=== PATIENT | female | born 1955 | race Caucasian/White ===

== ENCOUNTER 2016-10-26 13:06 | Emergency (ER) | payer SELFPAY ==
[~2016-10-26] VITALS: Ht 165.1 cm; Wt 90.7 kg
--- NOTE | 2016-10-26 13:43 | PHYS DOC ---
Past Medical History Past Medical History: GERD, Hypertension, Other Additional Past Medical Histor: ulcer; uncontrolled HTN Past Surgical History: Cholecystectomy, , Other Additional Past Surgical Histo: left shoulder; left knee Alcohol Use: None Drug Use: None Adult General Chief Complaint Chief Complaint: CHEST PAIN HPI HPI Patient is a 61 year old female who presents with chest pain and shortness of breath since 3 AM this morning. Patient states she woke up at 3 in this morning with chest pain or shortness of breath that has progressed over the day therefore she came the emergency room. Patient denies any cardiac history. Patient denies any DVT risk factors. Patient denies any fevers. Patient describes the pain as a heaviness on her chest as unable to get deep breath. Patient denies a productive cough. Patient states she's laid in bed most the day therefore does not know if the pain is exertional. Patient no other complaints. Review of Systems Review of Systems GEN: Denies fevers, chills, sweats HEENT: Denies blurred vision, sore throat CV: chest pain RESP: soa GI: Denies n/v/d NEURO: Denies confusion, dizziness MSK: Denies weakness, joint pain/swelling Current Medications Current Medications Current Medications Medications (Trade) Dose Ordered Sig/Nathalie Start Time Stop Time Status Last Admin Dose Admin Albuterol/ Ipratropium (Duoneb) 3 ml 1X ONCE 10/26/16 15:15 10/26/16 15:16 DC 10/26/16 15:23 3 ML Aspirin (Children'S Aspirin) 324 mg 1X ONCE 10/26/16 15:00 10/26/16 15:03 DC 10/26/16 15:01 324 MG Iohexol (Omnipaque 300 Mg/ml) 75 ml 1X ONCE 10/26/16 15:00 10/26/16 15:01 DC 10/26/16 15:17 75 ML Allergies Allergies Allergies Coded Allergies Type Severity Reaction Last Updated Verified No Known Drug Allergies 10/26/16 No Physical Exam Physical Exam GEN.: No apparent distress. Alert and oriented. HEENT: Head is normocephalic, atraumatic NECK: Supple. LUNGS: CTAB. HEART: RRR, S1, S2 present. Peripheral pulses intact ABDOMEN: Soft, nontender. Positive bowel sounds. EXTREMITIES: Without any cyanosis. NEUROLOGIC: Normal speech, normal tone PSYCHIATRIC: Normal affect, normal mood. SKIN: No ulcerations Current Patient Data Vital Signs Vital Signs Date Time Temp Pulse Resp B/P (MAP) Pulse Ox O2 Delivery O2 Flow Rate FiO2 10/26/16 16:30 84 20 172/80 (110) 97 Room Air 10/26/16 13:11 99.3 99.3 Lab Values Laboratory Tests Test 10/26/16 13:45 10/26/16 13:55 10/26/16 15:30 White Blood Count 7.8 x10^3/uL (4.0-11.0) Red Blood Count 4.55 x10^6/uL (3.50-5.40) Hemoglobin 12.9 g/dL (12.0-15.5) Hematocrit 39.4 % (36.0-47.0) Mean Corpuscular Volume 87 fL (79-100) Mean Corpuscular Hemoglobin 28 pg (25-35) Mean Corpuscular Hemoglobin Concent 33 g/dL (31-37) Red Cell Distribution Width 13.2 % (11.5-14.5) Platelet Count 109 x10^3/uL (140-400) L Neutrophils (%) (Auto) 71 % (31-73) Lymphocytes (%) (Auto) 19 % (24-48) L Monocytes (%) (Auto) 9 % (0-9) Eosinophils (%) (Auto) 1 % (0-3) Basophils (%) (Auto) 1 % (0-3) Neutrophils # (Auto) 5.5 x10^3uL (1.8-7.7) Lymphocytes # (Auto) 1.4 x10^3/uL (1.0-4.8) Monocytes # (Auto) 0.7 x10^3/uL (0.0-1.1) Eosinophils # (Auto) 0.1 x10^3/uL (0.0-0.7) Basophils # (Auto) 0.1 x10^3/uL (0.0-0.2) D-Dimer (Kailee) 0.93 ug/mlFEU (0.00-0.50) H Sodium Level 144 mmol/L (136-145) Potassium Level 3.6 mmol/L (3.5-5.1) Chloride Level 108 mmol/L (98-107) H Carbon Dioxide Level 26 mmol/L (21-32) Anion Gap 10 (6-14) Blood Urea Nitrogen 17 mg/dL (7-20) Creatinine 0.9 mg/dL (0.6-1.0) Estimated GFR (Cockcroft-Gault) 64.1 BUN/Creatinine Ratio 19 (6-20) Glucose Level 144 mg/dL (70-99) H Calcium Level 9.3 mg/dL (8.5-10.1) Total Bilirubin 0.4 mg/dL (0.2-1.0) Aspartate Amino Transferase (AST) 43 U/L (15-37) H Alanine Aminotransferase (ALT) 32 U/L (14-59) Alkaline Phosphatase 58 U/L (46-116) Creatine Kinase 169 U/L (26-192) Creatine Kinase MB (Mass) 1.4 ng/mL (0.0-3.6) Creatine Kinase MB Relative Index 0.8 % (0-4) Troponin I Quantitative < 0.017 ng/mL (0.000-0.055) < 0.017 ng/mL (0.000-0.055) Total Protein 7.4 g/dL (6.4-8.2) Albumin 3.4 g/dL (3.4-5.0) Albumin/Globulin Ratio 0.9 (1.0-1.7) L Urine Collection Type Unknown Urine Color Yellow Urine Clarity Clear Urine pH 6.5 Urine Specific [place] 1.020 Urine Protein Negative mg/dL (NEG-TRACE) Urine Glucose (UA) Negative mg/dL (NEG) Urine Ketones (Stick) Negative mg/dL (NEG) Urine Blood Large (NEG) Urine Nitrite Negative (NEG) Urine Bilirubin Negative (NEG) Urine Urobilinogen Dipstick 0.2 mg/dL (0.2 mg/dL) Urine Leukocyte Esterase Negative (NEG) Urine RBC Tntc /HPF (0-2) Urine WBC 1-4 /HPF (0-4) Urine Squamous Epithelial Cells Few /LPF Urine Bacteria 0 /HPF (0-FEW) Urine Hyaline Casts Few /HPF Urine Mucus Mod /LPF Laboratory Tests 10/26/16 13:45 Laboratory Tests 10/26/16 13:45 EKG EKG 1314: EKG shows normal sinus rhythm rate of 87 no STEMI [] Radiology/Procedures Radiology/Procedures CXR: No acute cardiopulmonary process seen. Mildly enlarged bilateral hilar lymph nodes with calcifications. These may be related to prior granulomatous infection, however if symptoms persist, evaluation with CT chest with contrast may be of additional benefit.[] [facility] [address] [place] [address] IMAGING REPORT Signed PATIENT: CORETTA RAMIREZ ACCOUNT: [id number] : 1955 LOCATION: ER AGE: 61 SEX: F EXAM STATUS: REG ER ORD. PHYSICIAN: JENNIFER ROBLES DO REASON: chest pain, soa PROCEDURE: CT ANGIOGRAPHY CHEST CTA of the chest with contrast (pulmonary embolism protocol) 10/26/2016 Clinical History: Chest pain and shortness of breath. Technique: After the intravenous administration of 75 mL of Omnipaque 300, contiguous, 0.625 mm axial sections were obtained through the chest. 2 mm reconstructed axial and 3D MIP coronal and sagittal reconstructed images were obtained. One or more of the following individualized dose reduction techniques were utilized for this study: 1. Automated exposure control. 2. Adjustment of the mA and/or kV according to patient size. 3. Use of iterative reconstruction technique. Findings: Comparison is made to PA and lateral chest radiographs performed earlier today. No filling defects are seen within the major branches of either pulmonary artery. The heart is mildly enlarged. Mild atherosclerotic plaque formation is seen involving the thoracic aorta and its branches. The thoracic aorta is tortuous but tapers normally. Scattered coronary artery calcifications are seen. Calcified left hilar lymph nodes are noted. Dependent subsegmental atelectasis is seen involving both lungs. No acute pulmonary infiltrate is seen. No pleural effusion or pneumothorax is noted. Small calcified granulomas are seen involving the left upper lobe. Impression: There is no CT evidence of pulmonary embolism. DICTATED and SIGNED BY: EUNICE MENDOZA MD DATE: 10/26/16 2031 CC: QUOC REECE MD; NO PCP; JENNIFER ROBLES DO ~ Impressions: Chest pain Course & Med Decision Making Course & Med Decision Making Pertinent Labs and Imaging studies reviewed. (See chart for details) ED course: Patient was seen and examined emergency room cardiac workup was ordered along with a d-dimer 1444: Patient was reevaluated and her chest pain has resolved has discussed with patient about being admitted for cardiac observation versus going home since she is a heart score of 2. Still awaiting d-dimer however patient states she went to go home if her blood work looks normal. 1500: Patient was signed out to Dr. Quoc Reece who will follow-up on CT scan and disposition the patient My evaluation of the patient she states that she woke up at 3 AM and had shortness of breath that lasted about 30 minutes and then resolve. Later on she developed a substernal heaviness sensation has been constant since this morning. Nothing makes it better or worse. She has a history of hypertension, she's never been evaluated by cardiology with a stress test and she has a family history of coronary disease that started in her mom at the age of 69 with stents. EKG showed no acute abnormalities, d-dimer was elevated CT angiogram was negative of her chest. Repeat troponin and CK-MB was not elevated. I've offered the patient admission but she declines that she rather go home. Had a long conversation with her and her son stating that the symptoms could still be cardiac in nature. I explained to her the risks of going home and she's agrees that she can except those. She is to follow-up with cardiology as an outpatient. Return precautions given. She is agreeable to the plan of being discharged at this time against my advice. [] Dragon Disclaimer Dragon Disclaimer This electronic medical record was generated, in whole or in part, using a voice recognition dictation system. Departure Departure Impression: Primary Impression: Chest pain Disposition: HOME, SELF-CARE Condition: STABLE Referrals: CAROLA DEL TORO MD Patient Instructions: Chest Pain (Nonspecific) Additional Instructions: You were seen today because of your chest pain symptoms that you're having. Your EKG, blood work, CT angiogram of your chest did not show any acute abnormality's. I recommend that he be admitted to be seen by the catheterization laboratory technician. You had decided that you would rather go home and follow-up as an outpatient. I explained to you that this could be her heart that is causing the symptoms and we can't for sure say it's not that you being admitted and your willing to accept this risk and follow-up as an outpatient. Please call Dr. Del Toro's office and schedule follow-up with him. If your symptoms get worse, return, we have other concerns please return back to emergency department. Problem Qualifiers Primary Impression: Chest pain Chest pain type: other chest pain Qualified Codes: R07.89 - Other chest pain JENNIFER ROBLES DO Oct 26, 2016 13:43 QUOC REECE MD Oct 26, 2016 16:18
[2016-10-26 13:55] LABS: BASO # 0.1 x10^3/uL (0.0-0.2); BASO % 1 % (0-3); EOS % 1 % (0-3); HEMATOCRIT 39.4 % (36.0-47.0); HEMOGLOBIN 12.9 g/dL (12.0-15.5); LYMPH # 1.4 x10^3/uL (1.0-4.8); LYMPH % 19 % (24-48); MEAN CORPUSCULAR HEMOGLOBIN 28 pg (25-35); MEAN CORPUSCULAR HGB CONC 33 g/dL (31-37); MEAN CORPUSCULAR VOLUME 87 fL (79-100); MONO % 9 % (0-9); NEUT % 71 % (31-73); PLATELET COUNT 109 x10^3/uL (140-400); RED BLOOD COUNT 4.55 x10^6/uL (3.50-5.40); RED CELL DISTRIBUTION WIDTH 13.2 % (11.5-14.5); WHITE BLOOD COUNT 7.8 x10^3/uL (4.0-11.0)
--- NOTE | 2016-10-26 13:58 | RAD ---
Exam performed: 2 views of the chest. Indication: chest pain, worse on the right side Date of Service:10/26/2016 3:36 PM . Comparison : None available Findings: PA and lateral radiographs of the chest reveal a normal cardiomediastinal contour. The lungs are clear. Mildly enlarged, partially calcified left hilar lymph. There is also perhaps a lymph node in the right hilum. Calcified nodule in the left lung base No pleural fluid is seen. The visualized osseous structures are unremarkable. Impression: No acute cardiopulmonary process seen. Mildly enlarged bilateral hilar lymph nodes with calcifications. These may be related to prior granulomatous infection, however if symptoms persist, evaluation with CT chest with contrast may be of additional benefit.
[2016-10-26 14:03] LABS: CALCIUM 9.3 mg/dL (8.5-10.1); CREATININE 0.9 mg/dL (0.6-1.0); GFR 64.1; POTASSIUM 3.6 mmol/L (3.5-5.1)
[2016-10-26 14:09] LABS: ALBUMIN 3.4 g/dL (3.4-5.0); ALBUMIN/GLOBULIN RATIO 0.9 (1.0-1.7); TOTAL BILIRUBIN 0.4 mg/dL (0.2-1.0); TOTAL PROTEIN 7.4 g/dL (6.4-8.2)
[2016-10-26 14:13] LABS: BILIRUBIN,URINE NEGATIVE (NEG); GLUCOSE,URINE NEGATIVE (NEG); NITRITE,URINE NEGATIVE (NEG); PH,URINE 6.5; PROTEIN,URINE NEGATIVE (NEG-TRACE); UROBILINOGEN,URINE 0.2 mg/dL (0.2 mg/dL)
[2016-10-26 14:27] LABS: BACTERIA,URINE 0 /HPF (0-FEW); RBC,URINE TNTC /HPF (0-2); SQUAMOUS EPITHELIAL CELL,UR FEW /LPF
[2016-10-26] MEDS ORDERED: IOHEXOL 300 MG/ML 75 ML VIAL IV ONE (15:00)
[2016-10-26] MEDS ORDERED: ASPIRIN CHEWABLE 81 MG TABLET. PO ONE (15:00)
[2016-10-26] MEDS ORDERED: IPRATRPIUM/ALBUTEROL 0.5/2.5MG 3 ML NEBU. NEB ONE (15:15)
--- NOTE | 2016-10-26 15:23 | EKG ---
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
--- NOTE | 2016-10-26 15:41 | RAD ---
CTA of the chest with contrast (pulmonary embolism protocol) 10/26/2016 Clinical History: Chest pain and shortness of breath. Technique: After the intravenous administration of 75 mL of Omnipaque 300, contiguous, 0.625 mm axial sections were obtained through the chest. 2 mm reconstructed axial and 3D MIP coronal and sagittal reconstructed images were obtained. One or more of the following individualized dose reduction techniques were utilized for this study: 1. Automated exposure control. 2. Adjustment of the mA and/or kV according to patient size. 3. Use of iterative reconstruction technique. Findings: Comparison is made to PA and lateral chest radiographs performed earlier today. No filling defects are seen within the major branches of either pulmonary artery. The heart is mildly enlarged. Mild atherosclerotic plaque formation is seen involving the thoracic aorta and its branches. The thoracic aorta is tortuous but tapers normally. Scattered coronary artery calcifications are seen. Calcified left hilar lymph nodes are noted. Dependent subsegmental atelectasis is seen involving both lungs. No acute pulmonary infiltrate is seen. No pleural effusion or pneumothorax is noted. Small calcified granulomas are seen involving the left upper lobe. Impression: There is no CT evidence of pulmonary embolism.
[2016-10-26 16:54] LABS: CKMB MASS 1.4 ng/mL (0.0-3.6)
[2016-10-26 17:00] VITALS: BP 164/71
== END 2016-10-26 17:43 | disposition home or self-care (01) ==
LOC: ER 13:06
DX: R07.89 Other chest pain (principal); R06.02 Shortness of breath; K21.9 Gastro-esophageal reflux disease without esophagitis; I10 Essential (primary) hypertension; Z90.49 Acquired absence of other specified parts of digestive tract
CPT/HCPCS: 36415; 71020; 71275; 80053; 81001; 82553; 84484; 85025; 85379; 93005; 94250; 94640; 99285; J7620; Q9967

== ENCOUNTER 2016-11-21 16:56 | Inpatient (IN) | payer SELFPAY ==
[~2016-11-21] VITALS: Ht 165.1 cm; Wt 106.7 kg
[2016-11-21 17:30] LABS: BASO # 0.1 x10^3/uL (0.0-0.2); BASO % 1 % (0-3); EOS % 3 % (0-3); HEMATOCRIT 38.5 % (36.0-47.0); HEMOGLOBIN 12.7 g/dL (12.0-15.5); LYMPH # 1.4 x10^3/uL (1.0-4.8); LYMPH % 20 % (24-48); MEAN CORPUSCULAR HEMOGLOBIN 28 pg (25-35); MEAN CORPUSCULAR HGB CONC 33 g/dL (31-37); MEAN CORPUSCULAR VOLUME 86 fL (79-100); MONO % 8 % (0-9); NEUT % 68 % (31-73); PLATELET COUNT 97 x10^3/uL (140-400); RED BLOOD COUNT 4.48 x10^6/uL (3.50-5.40); RED CELL DISTRIBUTION WIDTH 13.9 % (11.5-14.5); WHITE BLOOD COUNT 6.8 x10^3/uL (4.0-11.0)
[2016-11-21] MEDS ORDERED: ACETAMINOPHEN 500 MG TABLET PO ONE (17:30)
[2016-11-21] MEDS ORDERED: IV NORMAL SALINE 1000ML BAG 1,000 ML IV ONE (17:30)
[2016-11-21] MEDS ORDERED: IOHEXOL 240 MG/ML 50ML VIAL. PO ONE (17:30)
[2016-11-21] MEDS ORDERED: IOHEXOL 300 MG/ML 75 ML VIAL IV ONE (17:30)
--- NOTE | 2016-11-21 17:36 | PHYS DOC ---
Past Medical History Past Medical History: Hypertension Additional Past Medical Histor: ulcer; uncontrolled HTN Past Surgical History: Cholecystectomy, Additional Past Surgical Histo: left shoulder; left knee Alcohol Use: Occasionally Drug Use: None Adult General Chief Complaint Chief Complaint: MULTIPLE TRAUMA/FALL HPI HPI Patient is a 61 year old F who presents with fall down a flight of stairs. Patient states she drank 4 tall beers which she believes contributed to her fall down the stairs. Patient complains of left neck pain, left shoulder pain, left elbow pain, left wrist pain. Patient states she cannot move her left arm without having excruciating pain. Patient also complains of some right rib pain. Patient denies loss of consciousness. Patient states she is not taking any blood thinners. Patient denies any domestic abuse. Patient has no other complaints. Review of Systems Review of Systems GEN: Denies fevers, chills, sweats HEENT: Denies blurred vision, sore throat CV: Right chest wall pain RESP: Denies shortness of air, cough GI: Denies n/v/d NEURO: Denies confusion, dizziness MSK: Left arm pain Current Medications Current Medications Current Medications Medications (Trade) Dose Ordered Sig/Nathalie Start Time Stop Time Status Last Admin Dose Admin Acetaminophen (Tylenol) 1,000 mg 1X ONCE 11/21/16 17:30 11/21/16 17:31 DC 11/21/16 17:27 1,000 MG Info (Do NOT chart on this entry -- for MONITORING) 1 each PRN DAILY PRN 11/21/16 17:45 11/23/16 17:44 Iohexol (Omnipaque 240 Mg/ml) 50 ml 1X ONCE 11/21/16 17:30 11/21/16 17:31 DC Iohexol (Omnipaque 300 Mg/ml) 75 ml 1X ONCE 11/21/16 17:30 11/21/16 17:31 DC Sodium Chloride 1,000 ml @ 1,000 mls/hr 1X ONCE 11/21/16 17:30 11/21/16 18:29 DC 11/21/16 17:28 1,000 MLS/HR Allergies Allergies Allergies Coded Allergies Type Severity Reaction Last Updated Verified No Known Drug Allergies 10/26/16 No Physical Exam Physical Exam GEN.: No apparent distress. Alert and oriented. HEENT: No obvious trauma to the head, extraocular muscles were intact, pupils were equal and reactive bilaterally NECK: Supple. Abrasion to the left neck wrapping around to midline with erythema and tenderness palpation, no C-spine midline tenderness LUNGS: CTAB. HEART: RRR, S1, S2 present. Peripheral pulses intact Chest wall: Positive tenderness palpation to the right lower chest wall with an abrasion underneath the right breast approximately 4 cm in length ABDOMEN: Soft, nontender. Positive bowel sounds. EXTREMITIES: Without any cyanosis, tenderness palpation to the left shoulder , elbow, wrist. Patient has an abrasion to her left forearm. Patient has decreased range of motion to the entire left upper extremity. Patient has a good radial pulse on the left and capillary refill to the fingers is less than 2 seconds NEUROLOGIC: Normal speech, normal tone PSYCHIATRIC: Agitated and intoxicated SKIN: No ulcerations Current Patient Data Vital Signs Vital Signs Date Time Temp Pulse Resp B/P (MAP) Pulse Ox O2 Delivery O2 Flow Rate FiO2 11/21/16 19:37 72 16 142/61 (88) 97 Room Air 11/21/16 17:10 98.5 98.5 Lab Values Laboratory Tests Test 11/21/16 17:18 11/21/16 18:31 White Blood Count 6.8 x10^3/uL (4.0-11.0) Red Blood Count 4.48 x10^6/uL (3.50-5.40) Hemoglobin 12.7 g/dL (12.0-15.5) Hematocrit 38.5 % (36.0-47.0) Mean Corpuscular Volume 86 fL (79-100) Mean Corpuscular Hemoglobin 28 pg (25-35) Mean Corpuscular Hemoglobin Concent 33 g/dL (31-37) Red Cell Distribution Width 13.9 % (11.5-14.5) Platelet Count 97 x10^3/uL (140-400) L Neutrophils (%) (Auto) 68 % (31-73) Lymphocytes (%) (Auto) 20 % (24-48) L Monocytes (%) (Auto) 8 % (0-9) Eosinophils (%) (Auto) 3 % (0-3) Basophils (%) (Auto) 1 % (0-3) Neutrophils # (Auto) 4.6 x10^3uL (1.8-7.7) Lymphocytes # (Auto) 1.4 x10^3/uL (1.0-4.8) Monocytes # (Auto) 0.6 x10^3/uL (0.0-1.1) Eosinophils # (Auto) 0.2 x10^3/uL (0.0-0.7) Basophils # (Auto) 0.1 x10^3/uL (0.0-0.2) Sodium Level 142 mmol/L (136-145) Potassium Level 3.5 mmol/L (3.5-5.1) Chloride Level 108 mmol/L (98-107) H Carbon Dioxide Level 24 mmol/L (21-32) Anion Gap 10 (6-14) Blood Urea Nitrogen 17 mg/dL (7-20) Creatinine 0.9 mg/dL (0.6-1.0) Estimated GFR (Cockcroft-Gault) 64.1 BUN/Creatinine Ratio 19 (6-20) Glucose Level 116 mg/dL (70-99) H Calcium Level 8.4 mg/dL (8.5-10.1) L Total Bilirubin 0.4 mg/dL (0.2-1.0) Aspartate Amino Transferase (AST) 59 U/L (15-37) H Alanine Aminotransferase (ALT) 36 U/L (14-59) Alkaline Phosphatase 50 U/L (46-116) Total Protein 7.6 g/dL (6.4-8.2) Albumin 3.5 g/dL (3.4-5.0) Albumin/Globulin Ratio 0.9 (1.0-1.7) L Ethyl Alcohol Level 189 mg/dL (0-10) H Urine Collection Type Unknown Urine Color Yellow Urine Clarity Clear Urine pH 6.0 Urine Specific [place] 1.015 Urine Protein Negative mg/dL (NEG-TRACE) Urine Glucose (UA) Negative mg/dL (NEG) Urine Ketones (Stick) Negative mg/dL (NEG) Urine Blood Small (NEG) Urine Nitrite Negative (NEG) Urine Bilirubin Negative (NEG) Urine Urobilinogen Dipstick 0.2 mg/dL (0.2 mg/dL) Urine Leukocyte Esterase Negative (NEG) Urine RBC 0 /HPF (0-2) Urine WBC 1-4 /HPF (0-4) Urine Squamous Epithelial Cells Few /LPF Urine Bacteria Few /HPF (0-FEW) Urine Opiates Screen Neg (NEG) Urine Methadone Screen Neg (NEG) Urine Barbiturates Neg (NEG) Urine Phencyclidine Screen Neg (NEG) Urine Amphetamine/Methamphetamine Neg (NEG) Urine Benzodiazepines Screen Neg (NEG) Urine Cocaine Screen Neg (NEG) Urine Cannabinoids Screen Neg (NEG) Urine Ethyl Alcohol Pos (NEG) Laboratory Tests 11/21/16 17:18 Laboratory Tests 11/21/16 17:18 EKG EKG 1830: EKG shows normal sinus rhythm rate of 75 no STEMI[] Radiology/Procedures Radiology/Procedures CT scan of the head and C-spine NAD CT scan of the chest/abdomen/pelvis NAD Left elbow no obvious fracture left shoulder no obvious fracture X-ray of the left wrist shows a comminuted interarticular distal radius fracture and ulnar styloid fracture [] Course & Med Decision Making Course & Med Decision Making Pertinent Labs and Imaging studies reviewed. (See chart for details) ED course: Patient was seen and examined emergency room CT scan the head/C-spine/chest/ abdomen/pelvis were ordered along with basic blood work and x-rays of the left shoulder/elbow/wrist 1929: Patient was updated on the findings of the radiology along with the left wrist fracture 1939: Discussed CC/HP/PMH with Dr. Sheehan and recommends admit to medicine and will take to the OR tomorrow, recommended a sugar tong splint and did not need to reduce it in the emergency room, splint to comfort 1948: Discussed CC/HP/PMH with Dr. Banks and recommends admit [] 1954: Sugar tong splint applied to the left upper extremity post-splint evaluation neurovascularly intact [] Dragon Disclaimer Dragon Disclaimer This electronic medical record was generated, in whole or in part, using a voice recognition dictation system. Departure Departure Impression: Primary Impression: Left wrist fracture Additional Impressions: Fall Alcohol abuse Disposition: ADMITTED INPATIENT Admitting Physician: Other (Dr. Banks) Condition: STABLE Referrals: NO PCP (PCP) Problem Qualifiers JENNIFER ROBLES DO Nov 21, 2016 17:36
[2016-11-21] MEDS ORDERED: CONTRAST GIVEN MC PRN (17:45)
[2016-11-21 17:49] LABS: CALCIUM 8.4 mg/dL (8.5-10.1); CREATININE 0.9 mg/dL (0.6-1.0); GFR 64.1; POTASSIUM 3.5 mmol/L (3.5-5.1)
[2016-11-21 17:54] LABS: ALBUMIN 3.5 g/dL (3.4-5.0); ALBUMIN/GLOBULIN RATIO 0.9 (1.0-1.7); TOTAL BILIRUBIN 0.4 mg/dL (0.2-1.0); TOTAL PROTEIN 7.6 g/dL (6.4-8.2)
--- NOTE | 2016-11-21 18:23 | EKG ---
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
--- NOTE | 2016-11-21 18:38 | RAD ---
Indication: Headache and neck pain after fall down stairs today Technique: Noncontrast CT head was obtained. CT cervical spine includes axial images and coronal and sagittal reformatted images. No comparison is available. One or more of the following individualized dose reduction techniques were utilized for this examination: 1. Automated exposure control 2. Adjustment of the mA and/or kV according to patient size 3. Use of iterative reconstruction technique Findings: Head: The ventricles and sulci are within normal limits for age. There is no acute intracranial hemorrhage or extra-axial fluid collection. There is no mass effect or midline shift. Tapia-white differentiation is preserved. There is no depressed skull fracture. Paranasal sinuses and mastoid air cells are clear. Cervical spine: There is no fracture. There is straightening of cervical lordosis but no subluxation. Prevertebral soft tissues are within normal limits. Craniovertebral junction is unremarkable. Disc osteophyte complexes, uncinate process spurring, and facet hypertrophy are noted. Facet hypertrophy is greatest on the left at C3-C4. Disc osteophyte complex is greatest at C6-C7. There is probably mild to moderate canal stenosis at C6-C7. Lung apices are clear. Lymph nodes along the cervical chains are presumed reactive. IMPRESSION: 1. No acute intracranial findings. 2. Negative for fracture or dislocation in the cervical spine. Straightening of cervical lordosis may be positional or secondary to muscle spasm. 3. Degenerative changes in the cervical spine. Electronically signed by: Peter Dacosta MD (11/21/2016 6:35 PM) [facility]
--- NOTE | 2016-11-21 18:46 | RAD ---
Indication: Pain after fall down stairs, body pain and aches. Technique: Axial images and coronal and sagittal reformatted images of the chest, abdomen, and pelvis are provided. 75 mL of intravenous Omnipaque 300 was administered without complication. No comparison is available. One or more of the following individualized dose reduction techniques were utilized for this examination: 1. Automated exposure control 2. Adjustment of the mA and/or kV according to patient size 3. Use of iterative reconstruction technique Findings: Chest: There is dependent atelectasis. There is no pulmonary contusion. There is no pneumothorax or pleural fluid. Central airways are patent. There is no evidence of mediastinal injury. There are calcified left hilar lymph nodes. There are calcified granulomas. There are coronary artery calcifications. There is no displaced rib fracture. There are degenerative changes in the spine. Abdomen: There is streak artifact from the patient's arms. There is no hepatic laceration. Gallbladder is absent. There is no evidence of a splenic laceration. Pancreas and adrenals are unremarkable. There is a 2 mm nonobstructing left renal calculus. There is no evidence of a renal laceration. There is atheromatous disease of the abdominal aorta without aneurysm. There is no evidence of a bowel injury. There are a few diverticula in the colon but no findings of a diverticulitis. There is no ascites or free air. There is a normal appendix. There is a small fat-containing umbilical hernia. There is no evidence of a retroperitoneal hemorrhage. Pelvis: Bladder is intact. There is no adnexal mass or free pelvic fluid. There is no pelvic hematoma. There are calcified phleboliths. Bony pelvis is intact. There are degenerative changes in the spine. IMPRESSION: 1. No acute thoracic findings. 2. No acute intra-abdominal findings. Electronically signed by: Peter Dacosta MD (11/21/2016 6:42 PM) [facility]
[2016-11-21 18:50] LABS: BILIRUBIN,URINE NEGATIVE (NEG); GLUCOSE,URINE NEGATIVE (NEG); NITRITE,URINE NEGATIVE (NEG); PROTEIN,URINE NEGATIVE (NEG-TRACE); UROBILINOGEN,URINE 0.2 mg/dL (0.2 mg/dL)
[2016-11-21 18:57] LABS: BARBITURATES NEG (NEG); BENZODIAZEPINES NEG (NEG); CANNABINOIDS NEG (NEG); COCAINE NEG (NEG); METHADONE NEG (NEG); OPIATES NEG (NEG); PHENCYCLIDINE NEG (NEG)
[2016-11-21 19:09] LABS: BACTERIA,URINE FEW /HPF (0-FEW); RBC,URINE 0 /HPF (0-2); SQUAMOUS EPITHELIAL CELL,UR FEW /LPF
[2016-11-21] MEDS ORDERED: ONDANSETRON PF 4 MG/2 ML VIAL. IV PRN (20:00)
[2016-11-21] MEDS ORDERED: fentaNYL PF VIAL 100 MCG/2 ML VIAL IV PRN (20:00)
[2016-11-21] MEDS ORDERED: fentaNYL PF VIAL 100 MCG/2 ML VIAL IV ONE (20:00)
[2016-11-21 22:15] VITALS: BP 113/56
[2016-11-21] MEDS: LISINOPRIL 10 MG TABLET PO SCH (22:45)
--- NOTE | 2016-11-21 22:52 | HP ---
ADMIT DATE: 11/21/2016 CHIEF COMPLAINT: Fall with wrist fracture. HISTORY OF PRESENT ILLNESS: The patient is a 61-year-old woman who had an accidental fall down the stairs at her home resulting in pain in her left neck, right ribs and left wrist. On evaluation in the Emergency Room, she was found with wrist fracture and suspected rib fracture, and promptly admitted for orthopedic consult and fixation of wrist fx. The patient relates that she had a day off today and typically drinks about 3 or 4 beers on her day off once a week. She apparently stumbled and fell down the stairs, hitting her neck on the bannister and tumbling further bracing with her hands and thus breaking her wrist on the left. She denies any loss of consciousness before or during the fall. She denies any other person involved in the fall. Denies any domestic abuse. Denies any other complaints. PAST MEDICAL HISTORY: Hypertension. She has not seen a physician in years, has not been taken any medications. FAMILY HISTORY: Positive for hypertension in daughter. SOCIAL HISTORY: Lives by herself. 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 Drinks alcohol only on her day off. Denies any tobacco or drug use. ALLERGIES: No known drug allergies. MEDICATIONS: None. REVIEW OF SYSTEMS: Positive as per HPI with pain in neck, rib cage and both arms, especially left wrist. Rest of organ system review was only positive for allergic symptoms including stuffy nose and postnasal drip. PHYSICAL EXAMINATION: VITAL SIGNS: From today show a blood pressure of 148/72, heart rate of 81, respiratory rate at 15. She is afebrile. GENERAL: This is a morbidly obese woman, alert and oriented, in no acute distress. HEENT: Shows no scleral icterus. NECK: Supple. LUNGS: Clear to auscultation bilaterally. HEART: Has regular rate and rhythm. ABDOMEN: Has positive bowel sounds, soft, nontender. EXTREMITIES: Show no edema. Left forearm and wrist are in a splint. LABORATORY DATA: CBC with a WBC of 6.8, hemoglobin 12.7, platelets of 97. Chemistries with a BUN and creatinine of 17 and 0.9. Electrolytes essentially within normal limits. Glucose at 116. LFTs with an AST of 59. Tox screen positive for alcohol at 189. Urine negative for signs of infection. IMAGING STUDIES: A chest, abdomen and pelvis CT shows no acute thoracic findings, no acute intraabdominal findings. CT of head and cervical spine without contrast show no acute intracranial findings, negative for fracture or dislocation in the cervical spine, degenerative changes are noted. Flat films of the left wrist show Colles fracture. ASSESSMENT AND PLAN: The patient is a 61-year-old woman with mechanical fall and wrist fracture. Orthopedics has been consulted and planned an open reduction and internal fixation in the morning. In the meantime, we will admit and get her blood pressure under control with starting lisinopril. She will receive p.o. as well as IV p.r.n. medications for pain control. She will be made n.p.o. after midnight. MICKI MCNEAL MD DR: OSIRIS/nts JOB#: [id number] / [id number] MELITA
[2016-11-21 23:00] VITALS: BP 142/73
[2016-11-22] VITALS (7 sets, daily range): BP systolic 115–191; BP diastolic 55–93
[2016-11-22 05:20] LABS: BASO % 1 % (0-3); EOS % 3 % (0-3); HEMATOCRIT 32.9 % (36.0-47.0); HEMOGLOBIN 11.4 g/dL (12.0-15.5); LYMPH # 1.3 x10^3/uL (1.0-4.8); LYMPH % 33 % (24-48); MEAN CORPUSCULAR HEMOGLOBIN 29 pg (25-35); MEAN CORPUSCULAR HGB CONC 35 g/dL (31-37); MEAN CORPUSCULAR VOLUME 84 fL (79-100); MONO % 12 % (0-9); NEUT % 51 % (31-73); PLATELET COUNT 77 x10^3/uL (140-400); RED CELL DISTRIBUTION WIDTH 13.8 % (11.5-14.5)
[2016-11-22 05:39] LABS: CREATININE 0.8 mg/dL (0.6-1.0); GFR 73.4; POTASSIUM 3.7 mmol/L (3.5-5.1)
[2016-11-22] MEDS: LISINOPRIL 10 MG TABLET PO SCH (07:42)
--- NOTE | 2016-11-22 07:56 | EKG ---
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
--- NOTE | 2016-11-22 08:48 | RAD ---
Examination: 2 views of the left shoulder History: History of pain in the left shoulder, fall Comparison: None available Findings: The humerus head is within the glenoid. Moderate degenerative changes identified in the glenohumeral joint, acromioclavicular joint. There is no obvious acute fracture identified. Impression: 1. Moderate degenerative changes identified in the acromioclavicular joint and the glenohumeral joints.
[2016-11-22] MEDS ORDERED: PNEUMOC CONJ VACC 23-VALENT 0.5 ML VIAL. VAX IM ONE (09:00)
[2016-11-22] MEDS ORDERED: FLU VACC QS2017-18 (36MOS+)/PF 0.5 ML SYRINGE. VAX IM ONE (09:00)
[2016-11-22] MEDS ORDERED: INFLUENZA VAX SCREEN BY RX. MC ONE (09:00)
[2016-11-22] MEDS ORDERED: PNEUMOCOCCAL VAX SCREEN BY RX. MC ONE (09:00)
[2016-11-22] MEDS: oxyCODONE/APAP 10/325 1 TAB TABLET PO PRN ×2 (09:01→18:38)
--- NOTE | 2016-11-22 09:43 | RAD ---
EXAM: Left wrist, 3 views. HISTORY: Trauma. COMPARISON: None. FINDINGS: Frontal, lateral and oblique views of the left wrist are obtained. There is a comminuted intra-articular fracture of the distal radial metaphysis with ventral inclination of the distal radial articular surface. There is a displaced fracture of the ulnar styloid. There is moderate first carpometacarpal subchondral sclerosis and spurring. There is wrist soft tissue swelling. IMPRESSION: 1. Displaced comminuted intra-articular fracture of the distal radial metaphysis. 2. Mildly displaced fracture of the ulnar styloid. 3. Moderate first carpal metacarpal osteoarthritis.
--- NOTE | 2016-11-22 10:01 | RAD ---
Examination: 3 views of the left elbow History: History of trauma, fall, pain Comparison: None available. Findings: The alignment of the elbow joint grossly appears unremarkable. There is no obvious acute fracture or dislocation identified. No significant joint effusion identified. Mild degenerative changes elbow joint. Impression: 1. No acute osseous findings. 2. Mild degenerative change elbow joint.
[2016-11-22] MEDS: MORPHINE SULFATE 4 MG/ML DISP.SYRIN. IV PRN ×3 (10:17→17:23)
--- NOTE | 2016-11-22 12:21 | PDOC ---
PROGRESS NOTES Chief Complaint Chief Complaint L wrist fx ASSESSMENT AND PLAN: 1. L wrist fx: planned surgical repair this PM 2. Pain control: percocet and morphine PRN (fentanyl suboptimal pain control) 3. HTN: on lisinopril, restarted 4. Prophylaxis: lovenox in AM History of Present Illness History of Present Illness had no pain O/N despite no pain meds, but paying for it this AM. fentanyl not working well, morphine better Vitals Vitals Vital Signs Date Time Temp Pulse Resp B/P (MAP) Pulse Ox O2 Delivery O2 Flow Rate FiO2 11/22/16 11:16 Room Air 11/22/16 07:42 191/93 11/22/16 07:00 97.9 68 18 94 97.9 Physical Exam General: Alert, Oriented X3, Cooperative, No acute distress Heart: Regular rate Lungs: Clear Abdomen: Normal bowel sounds, No tenderness Extremities: Other (Larm in splint) Skin: No rashes Labs LABS Laboratory Tests Test 11/21/16 17:18 11/21/16 18:31 11/22/16 04:40 11/22/16 07:38 White Blood Count 6.8 x10^3/uL (4.0-11.0) 4.0 x10^3/uL (4.0-11.0) Red Blood Count 4.48 x10^6/uL (3.50-5.40) 3.90 x10^6/uL (3.50-5.40) Hemoglobin 12.7 g/dL (12.0-15.5) 11.4 g/dL (12.0-15.5) Hematocrit 38.5 % (36.0-47.0) 32.9 % (36.0-47.0) Mean Corpuscular Volume 86 fL (79-100) 84 fL (79-100) Mean Corpuscular Hemoglobin 28 pg (25-35) 29 pg (25-35) Mean Corpuscular Hemoglobin Concent 33 g/dL (31-37) 35 g/dL (31-37) Red Cell Distribution Width 13.9 % (11.5-14.5) 13.8 % (11.5-14.5) Platelet Count 97 x10^3/uL (140-400) 77 x10^3/uL (140-400) Neutrophils (%) (Auto) 68 % (31-73) 51 % (31-73) Lymphocytes (%) (Auto) 20 % (24-48) 33 % (24-48) Monocytes (%) (Auto) 8 % (0-9) 12 % (0-9) Eosinophils (%) (Auto) 3 % (0-3) 3 % (0-3) Basophils (%) (Auto) 1 % (0-3) 1 % (0-3) Neutrophils # (Auto) 4.6 x10^3uL (1.8-7.7) 2.0 x10^3uL (1.8-7.7) Lymphocytes # (Auto) 1.4 x10^3/uL (1.0-4.8) 1.3 x10^3/uL (1.0-4.8) Monocytes # (Auto) 0.6 x10^3/uL (0.0-1.1) 0.5 x10^3/uL (0.0-1.1) Eosinophils # (Auto) 0.2 x10^3/uL (0.0-0.7) 0.1 x10^3/uL (0.0-0.7) Basophils # (Auto) 0.1 x10^3/uL (0.0-0.2) 0.0 x10^3/uL (0.0-0.2) Sodium Level 142 mmol/L (136-145) 143 mmol/L (136-145) Potassium Level 3.5 mmol/L (3.5-5.1) 3.7 mmol/L (3.5-5.1) Chloride Level 108 mmol/L (98-107) 110 mmol/L (98-107) Carbon Dioxide Level 24 mmol/L (21-32) 26 mmol/L (21-32) Anion Gap 10 (6-14) 7 (6-14) Blood Urea Nitrogen 17 mg/dL (7-20) 18 mg/dL (7-20) Creatinine 0.9 mg/dL (0.6-1.0) 0.8 mg/dL (0.6-1.0) Estimated GFR (Cockcroft-Gault) 64.1 73.4 BUN/Creatinine Ratio 19 (6-20) Glucose Level 116 mg/dL (70-99) 95 mg/dL (70-99) Calcium Level 8.4 mg/dL (8.5-10.1) 8.0 mg/dL (8.5-10.1) Total Bilirubin 0.4 mg/dL (0.2-1.0) Aspartate Amino Transf (AST/SGOT) 59 U/L (15-37) Alanine Aminotransferase (ALT/SGPT) 36 U/L (14-59) Alkaline Phosphatase 50 U/L (46-116) Total Protein 7.6 g/dL (6.4-8.2) Albumin 3.5 g/dL (3.4-5.0) Albumin/Globulin Ratio 0.9 (1.0-1.7) Ethyl Alcohol Level 189 mg/dL (0-10) Urine Collection Type Unknown Urine Color Yellow Urine Clarity Clear Urine pH 6.0 Urine Specific [place] 1.015 Urine Protein Negative mg/dL (NEG-TRACE) Urine Glucose (UA) Negative mg/dL (NEG) Urine Ketones (Stick) Negative mg/dL (NEG) Urine Blood Small (NEG) Urine Nitrite Negative (NEG) Urine Bilirubin Negative (NEG) Urine Urobilinogen Dipstick 0.2 mg/dL (0.2 mg/dL) Urine Leukocyte Esterase Negative (NEG) Urine RBC 0 /HPF (0-2) Urine WBC 1-4 /HPF (0-4) Urine Squamous Epithelial Cells Few /LPF Urine Bacteria Few /HPF (0-FEW) Urine Opiates Screen Neg (NEG) Urine Methadone Screen Neg (NEG) Urine Barbiturates Neg (NEG) Urine Phencyclidine Screen Neg (NEG) Urine Amphetamine/Methamphetamine Neg (NEG) Urine Benzodiazepines Screen Neg (NEG) Urine Cocaine Screen Neg (NEG) Urine Cannabinoids Screen Neg (NEG) Urine Ethyl Alcohol Pos (NEG) Glucose (Fingerstick) 80 mg/dL (70-99) MICKI MCNEAL MD Nov 22, 2016 12:21
[2016-11-22] MEDS: POTASSIUM CHLORIDE 30 MEQ in IV 1/2 NORMAL SALINE 1,000 ML IV SCH ×4 (12:32→19:53)
[2016-11-22] MEDS ORDERED: ROPIVacaine 0.5% PF 30 ML VIAL. ONE (14:13)
[2016-11-22] MEDS ORDERED: SEVOFLURANE 61 TO 120 MINUTES. IH ONE (15:40)
[2016-11-22] MEDS ORDERED: MIDAZOLAM HCL/PF 2 MG/2 ML VIAL. ONE (15:40)
[2016-11-22] MEDS ORDERED: fentaNYL PF VIAL 100 MCG/2 ML VIAL ONE ×2 (15:40)
[2016-11-22] MEDS ORDERED: ONDANSETRON PF 4 MG/2 ML VIAL. ONE (15:41)
[2016-11-22] MEDS ORDERED: PROPOFOL 20 ML IV ONE (15:41)
[2016-11-22] MEDS ORDERED: LIDOCAINE 2% PF Vial for OR 5 ML VIAL. ONE (15:41)
[2016-11-22] MEDS ORDERED: DEXAMETHASONE SOD PHOS 20 MG/5 ML VIAL. ONE (15:41)
[2016-11-22] MEDS ORDERED: ePHEDrine PF IN SALINE 50 MG/5 ML DISP.SYRIN IV ONE (16:02)
[2016-11-22] MEDS ORDERED: GLYCOPYRROLATE 1 MG/5 ML VIAL. ONE (16:27)
--- NOTE | 2016-11-22 17:11 | RAD ---
EXAM: Left wrist, 2 views. HISTORY: Fracture fixation. COMPARISON: 11/21/2016. FINDINGS: 2 fluoroscopic images of the left wrist are obtained. The total fluoroscopy time is 0.9 minutes. There is internal fixation of the comminuted intra-articular fracture of the distal radial metaphysis with a plate and multiple screws. There is a minimally displaced ulnar styloid fracture. There is moderate first carpometacarpal osteoarthritis. There is soft tissue swelling and gas due to intraoperative imaging. IMPRESSION: Internal fixation of a distal radial metaphyseal fracture.
[2016-11-22] MEDS: MORPHINE SULFATE 2 MG/ML DISP.SYRIN. IV PRN ×4 (17:13→17:55)
[2016-11-22] MEDS ORDERED: IV RINGERS,LACTATED 1000ML 1,000 ML IV SCH (17:16)
[2016-11-22] MEDS ORDERED: PROCHLORPERAZINE 10 MG/2 ML VIAL. ONE (17:18)
[2016-11-22] MEDS ORDERED: ONDANSETRON PF 4 MG/2 ML VIAL. IV PRN (17:30)
[2016-11-22] MEDS ORDERED: LIDOCAINE 1% PF 2 ML VIAL. ID PRN (17:30)
[2016-11-22] MEDS ORDERED: fentaNYL PF VIAL 100 MCG/2 ML VIAL IV PRN ×2 (17:30)
[2016-11-22] MEDS ORDERED: PROCHLORPERAZINE 10 MG/2 ML VIAL. IV PRN (17:30)
[2016-11-22] MEDS ORDERED: HYDROmorphone 2 MG/ML VIAL IV PRN (17:30)
--- NOTE | 2016-11-22 21:04 | PDOC4 ---
Operative Note Operative Note Date of surgery: 11/22/2016 Preoperative diagnosis: Intra-articular left distal radius fracture Postoperative diagnosis: Same with a 3 part intra-articular volar Gallego fracture Procedure: Operative reduction internal fixation intra-articular left distal radius fracture with volar plate and screw fixation Surgeon: Sissy Anesthesia: GenSarah endotracheal Estimated blood loss 5 mL Complications: None Operative indications: Patient underwent a fall down the stairs and landed on an outstretched arm sustaining the above injury I had gone over with her risks benefits postoperative course of the recommended operative treatment in the poor results expected of nonoperative treatment due to the intra-articular involvement and displacement of the fracture. In fact even with best treatment available and anatomic as possible reduction she is likely to have some ongoing pain potentially degenerative changes and with surgical treatment possibility of infection nonhealing nerve or blood vessel damage medical or other anesthetic complications among others. All her questions were answered she agrees to proceed with operative evaluation and treatment and informed consent was obtained Operative text: Patient was identified procedure verified patient placed in the supine position on the operating table. After adequate amounts of general endotracheal anesthesia were administered a tourniquet was placed on the left upper arm and the left upper extremity was prepped and draped in standard sterile fashion. After timeout was performed patient procedure identified and verified, the left upper extremity was exsanguinated by Esmarch bandage tourniquet inflated to 300 mmHg and a volar Jose G approach was carried out to the left wrist. Subperiosteal dissection was carried out to the distal radius and a standard Dalia volar distal radial locking plate was placed with a bicortical screw in the sliding hole reduction was carried out near anatomically and verified under multiple fluoroscopic views as well as plate positioning distal locking screws were then placed and showed excellent near anatomic reduction at the joint surface under multiple fluoroscopic views one additional bicortical shaft screw was placed for additional shaft fixation. Again excellent alignment was noted in all fluoroscopic views thorough irrigation carried out normal saline solution subcutaneous closure with buried Vicryl suture subcuticular Monocryl and a soft dressing was then applied patient was extubated transferred to postop holding in stable condition having tolerated procedure well KORIN HUYNH MD Nov 22, 2016 21:01
[2016-11-23] MEDS: MORPHINE SULFATE 4 MG/ML DISP.SYRIN. IV PRN (01:08)
[2016-11-23 03:00] VITALS: BP 119/68
[2016-11-23 05:34] LABS: BASO % 0 % (0-3); EOS % 0 % (0-3); HEMATOCRIT 35.7 % (36.0-47.0); HEMOGLOBIN 12.3 g/dL (12.0-15.5); LYMPH # 0.3 x10^3/uL (1.0-4.8); LYMPH % 7 % (24-48); MEAN CORPUSCULAR HEMOGLOBIN 29 pg (25-35); MEAN CORPUSCULAR HGB CONC 34 g/dL (31-37); MEAN CORPUSCULAR VOLUME 85 fL (79-100); MONO % 2 % (0-9); NEUT % 91 % (31-73); PLATELET COUNT 79 x10^3/uL (140-400); RED BLOOD COUNT 4.19 x10^6/uL (3.50-5.40); RED CELL DISTRIBUTION WIDTH 13.8 % (11.5-14.5); WHITE BLOOD COUNT 4.3 x10^3/uL (4.0-11.0)
[2016-11-23 05:48] LABS: CALCIUM 8.4 mg/dL (8.5-10.1); CREATININE 0.8 mg/dL (0.6-1.0); GFR 73.4; MAGNESIUM 1.9 mg/dL (1.8-2.4); POTASSIUM 4.8 mmol/L (3.5-5.1)
[2016-11-23 07:00] VITALS: BP 149/68
[2016-11-23] MEDS: oxyCODONE/APAP 5/325 1 TAB TABLET PO PRN ×2 (08:34→10:16)
[2016-11-23] MEDS: LISINOPRIL 10 MG TABLET PO SCH (08:34)
[2016-11-23 09:56] LABS: PLT ESTIMATE DECREASED (ADEQUATE)
[2016-11-23] MEDS ORDERED: OXYC1TAB7 PO (10:02)
[2016-11-23] MEDS ORDERED: LISI10TA2 PO (10:02)
[2016-11-23 11:10] VITALS: BP 127/62
--- NOTE | 2016-11-23 12:43 | CONS ---
DATE OF CONSULTATION: 11/22/2016 REQUESTING PHYSICIAN: Dr. Sheila Banks. REASON FOR CONSULTATION: Left intraarticular distal radius fracture. HISTORY OF PRESENT ILLNESS: The patient is a 61-year-old female who had a fall down her stairs, landing on her left wrist, had immediate onset of pain and deformity and also complained of neck pain and right-sided rib pain. She denies any loss of consciousness during the time of the fall and had a few beers prior to the accident. PAST MEDICAL HISTORY: Significant for hypertension. FAMILY HISTORY: Significant for hypertension in one of her daughters. 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 Denies tobacco or drug use. She says she drinks alcohol only on her day off. ALLERGIES: She has no known drug allergies. MEDICATIONS: She is on no medications. REVIEW OF SYSTEMS: Significant for neck pain, right-sided rib pain and left wrist pain as well as some pain in her left arm. She has had some seasonal allergies lately. Denies any chest pain, shortness of breath, fever, radiating pain, numbness, tingling, visual changes or low back pain. PHYSICAL EXAMINATION: GENERAL: This is a pleasant, cooperative 61-year-old female, alert and oriented, in no acute distress. EXTREMITIES: Examination of the left wrist reveals obvious deformity, pain with any palpation. She can flex and extend her fingers, but with pain on extremes of motion, has normal shoulder and elbow motion bilaterally. Normal examination of the contralateral right wrist with overall intact motor function, distal pulses, sensation, reflexes, skin in both upper extremities throughout. IMAGING: X-rays show an intra-articular displaced fracture of the left distal radius with some volar displacement. IMPRESSION: Left intraarticular distal radius fracture. TREATMENT PLAN: I talked to the patient about the significance of her injury and the treatment options, risks, benefits, postoperative course of the reduction procedure and the planned locked screws and plating of the procedure. All her questions were answered. She is aware of the possibility of infection, nerve or blood vessel damage, nonhealing, medical or other anesthetic complications among others. She wants to proceed with surgical evaluation and treatment, which will occur today. KORIN HUYNH MD DR: ANTHONY/aldo JOB#: [id number] / [id number]
[2016-11-23 14:57] VITALS: BP 124/58
[2016-11-23] MEDS: oxyCODONE/APAP 10/325 1 TAB TABLET PO PRN (15:48)
--- NOTE | 2016-11-23 23:44 | DS ---
DATE OF DISCHARGE: 11/23/2016 CHIEF COMPLAINT: Left wrist fracture. HISTORY OF PRESENT ILLNESS AND HOSPITAL COURSE: The patient is a 61-year-old overweight woman who presented to the hospital after a fall in her home downstairs with resulted pain in her wrist. She was found with a fracture. Ortho consult was obtained and the patient was taken for fixation on 11/22/2016. She tolerated the procedure well. Pain control was achieved with Percocet postop. The patient was deemed ready for discharge on the . The patient has a history of hypertension but had not refilled her scripts or followed up with her PCP. She was found hypertensive here and started on lisinopril. PHYSICAL EXAM: VS: stable, afeb GEN: A&O, NAD CV: RRR PULM: clear to auscultation bilaterally EXTR: L wrist in splint DISCHARGE DIAGNOSES: Left wrist fracture. DISCHARGE DISPOSITION: To home. DISCHARGE CONDITION: Improved. DISCHARGE MEDICATIONS: Please refer to MAR. DISCHARGE INSTRUCTIONS: The patient will follow up with Dr. Sheehan in 2 weeks. MICKI MCNEAL MD DR: UR/nts JOB#: [id number] / [id number] MELITA
== END 2016-11-23 14:30 | disposition home or self-care (01) | DRG 512 ==
LOC: ER 16:56 → 4 NORTH 19:42 → EEVIPCON 19:42
PROVIDERS: ADMIT Internal Medicine Hematology & Oncology; ATTEND Internal Medicine Hematology & Oncology
PROC: 0PSJ04Z Reposition Left Radius with Internal Fixation Device, Open Approach (ICD-10-PCS; principal; 2016-11-22 17:30)
DX: S52.572A Other intraarticular fracture of lower end of left radius, initial encounter for closed fracture (principal); E66.01 Morbid (severe) obesity due to excess calories; I10 Essential (primary) hypertension; W10.9XXA Fall (on) (from) unspecified stairs and steps, initial encounter; E66.3 Overweight; F10.10 Alcohol abuse, uncomplicated; R07.81 Pleurodynia; Z90.49 Acquired absence of other specified parts of digestive tract; Z68.39 Body mass index [BMI] 39.0-39.9, adult; Y93.89 Activity, other specified; Z82.49 Family history of ischemic heart disease and other diseases of the circulatory system; Y99.8 Other external cause status; Z79.899 Other long term (current) drug therapy; Y92.009 Unspecified place in unspecified non-institutional (private) residence as the place of occurrence of the external cause
CPT/HCPCS: 36415; 70450; 71260; 72125; 73030; 73080; 73110; 74177; 76000; 80048; 80053; 80307; 81001; 82962; 83735; 85007; 85025; 90686; 93005; 96361; 96374; G0480; J0690; J0780; J1100; J2250; J2270; J2405; J2704; J2795; J3010; J3490; J7030; 99285-25; G0479; J2001

== ENCOUNTER 2017-08-21 10:53 | Emergency (ER) | payer SELFPAY ==
[2017-08-21 11:52] LABS: BILIRUBIN,URINE SMALL (NEG); CLARITY,URINE CLEAR; COLOR,URINE AMBER; GLUCOSE,URINE NEGATIVE (NEG); NITRITE,URINE NEGATIVE (NEG); PH,URINE 5.5; PROTEIN,URINE 30 mg/dL (NEG-TRACE)
[2017-08-21] MEDS: IV NORMAL SALINE 1000ML BAG 1,000 ML IV (12:02)
[2017-08-21] MEDS: ONDANSETRON PF 4 MG/2 ML VIAL. IV (12:03)
[2017-08-21] MEDS: fentaNYL PF VIAL 100 MCG/2 ML VIAL IV (12:04)
[2017-08-21] MEDS: DICYCLOMINE HCL 10 MG CAPSULE PO (12:04)
[2017-08-21 12:13] LABS: AMPHETAMINE/METHAMPHETAMINE NEG (NEG); BARBITURATES NEG (NEG); BENZODIAZEPINES NEG (NEG); CANNABINOIDS NEG (NEG); COCAINE NEG (NEG); ETHANOL, URINE POS (NEG); METHADONE NEG (NEG); OPIATES NEG (NEG); PHENCYCLIDINE NEG (NEG)
[2017-08-21 12:16] LABS: ADD MAN DIFF? NO
[2017-08-21 12:17] LABS: RBC,URINE >40 /HPF (0-2)
[2017-08-21 12:18] LABS: BACTERIA,URINE 0 /HPF (0-FEW); BASO # 0.1 x10^3/uL (0.0-0.2); BASO % 1 % (0-3); EOS # 0.2 x10^3/uL (0.0-0.7); EOS % 3 % (0-3); HEMATOCRIT 36.9 % (36.0-47.0); HEMOGLOBIN 12.6 g/dL (12.0-15.5); LYMPH # 1.8 x10^3/uL (1.0-4.8); LYMPH % 32 % (24-48); MEAN CORPUSCULAR HEMOGLOBIN 29 pg (25-35); MEAN CORPUSCULAR HGB CONC 34 g/dL (31-37); MEAN CORPUSCULAR VOLUME 86 fL (79-100); MONO # 0.6 x10^3/uL (0.0-1.1); MONO % 10 % (0-9); NEUT % 53 % (31-73); PLATELET COUNT 117 x10^3/uL (140-400); RED BLOOD COUNT 4.29 x10^6/uL (3.50-5.40); RED CELL DISTRIBUTION WIDTH 14.3 % (11.5-14.5); SQUAMOUS EPITHELIAL CELL,UR FEW /LPF; WHITE BLOOD COUNT 5.6 x10^3/uL (4.0-11.0)
[2017-08-21 12:25] LABS: ANION GAP 7 (6-14); BLOOD UREA NITROGEN 28 mg/dL (7-20); BUN/CREATININE RATIO 23 (6-20); CALCIUM 7.8 mg/dL (8.5-10.1); CARBON DIOXIDE 26 mmol/L (21-32); CHLORIDE 111 mmol/L (98-107); CREATININE 1.2 mg/dL (0.6-1.0); GFR 45.8; GLUCOSE 103 mg/dL (70-99); POTASSIUM 4.1 mmol/L (3.5-5.1); SODIUM 144 mmol/L (136-145)
[2017-08-21 12:30] LABS: ETHANOL 251 mg/dL (0-10)
[2017-08-21 12:31] LABS: ALBUMIN 3.4 g/dL (3.4-5.0); ALBUMIN/GLOBULIN RATIO 0.9 (1.0-1.7); ALK PHOS 83 U/L (46-116); ALT (SGPT) 44 U/L (14-59); AST (SGOT) 73 U/L (15-37); LIPASE 480 U/L (73-393); TOTAL BILIRUBIN 0.3 mg/dL (0.2-1.0); TOTAL PROTEIN 7.3 g/dL (6.4-8.2)
[2017-08-21] MEDS: IOHEXOL 300 MG/ML 100ML VIAL. IV (12:38)
[2017-08-21] MEDS ORDERED: CONTRAST GIVEN. MC (12:45)
[2017-08-21] MEDS ORDERED: BUPIVACAINE 0.5% 50 ML VIAL. IJ (13:00)
== END 2017-08-21 17:25 | disposition home or self-care (01) ==
LOC: ER 10:53
DX: S62.604A Fracture of unspecified phalanx of right ring finger, initial encounter for closed fracture (principal); S60.221A Contusion of right hand, initial encounter; R10.84 Generalized abdominal pain; K85.20 Alcohol induced acute pancreatitis without necrosis or infection; N39.0 Urinary tract infection, site not specified; I10 Essential (primary) hypertension; Z90.49 Acquired absence of other specified parts of digestive tract; F10.10 Alcohol abuse, uncomplicated; W19.XXXA Unspecified fall, initial encounter; Y93.89 Activity, other specified; Y92.89 Other specified places as the place of occurrence of the external cause; Y99.8 Other external cause status
CPT/HCPCS: 29130; 36415; 73060; 73140; 74177; 80053; 80307; 81001; 83690; 85025; 87086; 87186; 96374; 96375; 99285-25; G0480; J2405; J3010; J7030; Q9967